=== PATIENT | female | born 2000 | race Two or more races ===

== ENCOUNTER 2022-06-16 23:50 | Emergency (ER) | payer BC ==
[~2022-06-16] VITALS: Ht 162.6 cm; Wt 64.5 kg
[2022-06-17] MEDS ORDERED: amox tr/potassium clavulanate 875/125mg TAB PO ONE (02:40)
[2022-06-17] MEDS ORDERED: acetaminophen 325mg tablet PO ONE (02:40)
[2022-06-17] MEDS ORDERED: AMOX-580 PO (02:45)
[2022-06-17 02:50] VITALS: BP 123/60
== END 2022-06-17 03:02 | disposition home or self-care (01) ==
LOC: ER 23:51
DX: S60.221A Contusion of right hand, initial encounter (principal); W54.0XXA Bitten by dog, initial encounter; Y93.89 Activity, other specified; Y92.89 Other specified places as the place of occurrence of the external cause; Y99.8 Other external cause status
CPT/HCPCS: 10140; 73140; 99284; A6222; J7030; A6449